=== PATIENT | female | born 1950 | race Hispanic/Latino ===

== ENCOUNTER → 2019-05-01 | Outpatient (CLI) | payer MEDICARE, OTHER ==
--- NOTE | 2019-05-01 15:24 | Diagnostic Imaging Report ---
History: Mild cognitive impairment Comparison studies: None. Technique: High resolution 3-D T1 with coronal, axial and sagittal reformats, axial DWI, axial T2*GRE, axial T2 and axial T2 FLAIR. Intravenous contrast: None. Findings: Structural lesions: No intra-or extra-axial masses. No hematomas. Atrophy: General: Symmetric and age appropriate. Focal: No disproportionate lobar, hippocampal, mesencephalic, pontine, or cerebellar atrophy. Sepulveda matter: Cortex: No signal abnormalities. No encephalomalacia. Basal ganglia: No atrophy or signal abnormalities. Thalami: No signal abnormalities. White matter signal intensity: No signal abnormalities. No capping or banding along the margins of the lateral ventricles. Micro hemorrhages: None. Extra-axial spaces: No mass or fluid collection. Ventricles: The left lateral ventricle is slightly larger than the right which may be an anatomical variant for this patient. No hydrocephalus. Other: Skull: No bone marrow abnormalities. Vessels: Expected flow voids present in the major arteries and dural sinuses.. Sella: Normal in size. No intra-or suprasellar abnormalities. Cranio-cervical junction: No abnormalities. Patent foramen magnum. No Chiari one malformation. Paranasal sinuses and mastoids: No T2 hyperintense mucosal thickening. Incidental findings: Lens replacement for previous cataract surgery. IMPRESSION: No intracranial abnormalities. Signed by: Dr. Augusto Choi M.D. on 05/01/2019 3:21 PM
--- NOTE | 2019-05-01 15:52 | Diagnostic Imaging Report ---
EXAM: Renal Ultrasound INDICATION: ^MALIGNANT NEOPLASM OF KIDNEY COMPARISON: None TECHNIQUE: Transverse and longitudinal images of the kidneys and bladder were obtained. FINDINGS: Right Kidney: Status post right partial nephrectomy. Length: 9.1 cm Appearance: Normal echogenicity. Collecting system: No hydronephrosis Stones: None Cyst/Mass: Mid pole anechoic simple cysts measuring 1.4 x 1.1 x 1.2 cm and 1.2 x 1.0 x 1.0 cm. Left Kidney: Length: 10.1 cm Appearance: Normal echogenicity. Collecting system: No hydronephrosis Stones: None Cyst/Mass: Upper pole 3.4 x 2.1 x 1.8 cm and 1.8 x 2.0 x 1.6 cm anechoic simple cysts. Midpole 1.9 x 2.0 x 2.4 cm anechoic simple cyst. Bladder: No mass or calculi. Bilateral ureteral jets seen. Prevoid volume estimate of 136cc IMPRESSION: Status post right partial nephrectomy. No solid mass lesions. No renal calculi or hydronephrosis. Bilateral simple cysts as above. Signed by: Jose Alejandro Jeronimo MD on 05/01/2019 3:48 PM
== END ==
LOC: MRI 13:34
PROVIDERS: ATTEND Family Medicine
DX: G31.84 Mild cognitive impairment of uncertain or unknown etiology (principal)
CPT/HCPCS: 70551; 76770

== ENCOUNTER → 2020-02-24 | Outpatient (CLI) | payer OTHER ==
[~2020-02-24] MED LIST: CIPRO500 MG PO; COLESTIPOL HCL1 GM PO; IOPAMIDOL 370 MG/ML 200 ML INFUS..BTL INJ ONE; LINZESS290 MCG PO; LIPITOR10 MG PO; LOMOTIL TABLET1 EACH PO; LOSARTAN-HCTZ1 EACH PO; OMEPRAZOLE40 MG PO; SODIUM CHLORIDE 0.9% 500ML 500 ML ONE; SODIUM CHLORIDE 0.9% 50ML 50 ML ONE
[2020-02-24 12:23] LABS: CREATININE, SERUM 1.05 mg/dL (0.57-1.11)
--- NOTE | 2020-02-24 15:27 | Diagnostic Imaging Report ---
CT of the abdomen and pelvis, with contrast. History: Malignant neoplasm of right kidney. Comparison: Ultrasound from 05/01/2019, CT abdomen/pelvis without with contrast from 04/17/2017. Technique: Multidetector CT scanning of the abdomen and pelvis was performed from the level of the lung bases to the inferior pubic rami after intravenous administration of contrast. Coronal and sagittal multiplanar reformations were obtained. RADIATION DOSE: Total DLP: 289.34 mGy*cm Dose modulation, iterative reconstruction, and/or weight based adjustment of the mA/kV was utilized to reduce the radiation dose to as low as reasonably achievable. FINDINGS: The visualized lungs are grossly clear. The imaged portion of the heart demonstrates no significant abnormalities. The liver is normal in size without evidence for focal abnormality. The gallbladder is unremarkable. There is no biliary ductal dilatation. There is a moderate size hiatal hernia present, similar to the prior examination. The stomach is otherwise unremarkable. The spleen pancreas, and bilateral adrenal glands are unremarkable. There are postsurgical interval changes from partial right nephrectomy with removal of the previously visualized exophytic solid mass arising from the inferior right kidney. There is a small amount of soft tissue stranding noted within the adjacent perirenal fat which likely reflects postsurgical change/fat necrosis. No discrete solid mass is identified. This examination can serve as a baseline for future comparisons. The kidneys otherwise enhance symmetrically. There are bilateral renal cystic lesions, some which are compatible simple cysts and some which are too small to definitively characterize. The largest cyst on the left measures up to 2.6 cm. The largest cyst on the right measures up to 1.7 cm. No no definite solid masses are identified on this single phase examination. There is no evidence for hydronephrosis. No ureteral stone/dilatation is appreciated. The partially distended urinary bladder demonstrates no significant abnormalities. The uterus is surgically absent. No abnormal adnexal masses are identified. The abdominal aorta is normal in course and caliber with atherosclerotic calcifications within its course and branch vessels. The IVC is otherwise unremarkable. Please note evaluation the bowel is limited without the use of enteric contrast material. The visualized loops of small and large bowel demonstrate no evidence of obstruction or inflammation. Diverticula are noted within the sigmoid and descending colon without evidence for acute diverticulitis. There is no ascites or intraperitoneal free air. No abnormally enlarged lymph nodes are identified within the abdomen or pelvis. There are multilevel degenerative changes of the lumbar spine including mild retrolisthesis of L2 on L3 and L3 on L4. There is no evidence of acute fracture or destructive process. The extraperitoneal soft tissues are unremarkable. IMPRESSION: 1. Post surgical changes from partial right nephrectomy. Small amount of soft tissue stranding noted in the adjacent perirenal fat which likely reflects postsurgical change. No discrete solid mass is identified to suggest residual/recurrent disease. 2. Bilateral renal cysts. 3. Moderate size hiatal hernia. 4. Diverticulosis coli without evidence for acute diverticulitis. Signed by: Dr. Umseh Sprague MD on 02/24/2020 3:23 PM
== END ==
LOC: CT 10:56
PROVIDERS: ATTEND Family Medicine
DX: C64.1 Malignant neoplasm of right kidney, except renal pelvis (principal)
CPT/HCPCS: 36415; 74177; 82565; 84520; 96360; J7040; Q9967

== ENCOUNTER → 2020-02-28 | Day surgery (SDC) | payer MEDICARE, OTHER ==
[2020-02-25 11:38] LABS: BASOPHILS % 0.7 % (0.0-1.0); EOSINOPHILS # (AUTO) 0.2 (0.0-0.4); EOSINOPHILS % 3.9 % (0.0-6.0); HEMOGLOBIN 9.1 g/dL (12.0-16.0); LYMPHOCYTES # (AUTO) 1.2 (1.0-3.2); LYMPHOCYTES % 22.3 % (18.0-39.1); MEAN CORPUSCULAR HEMOGLOBIN 23.5 pg (28-32); MEAN CORPUSCULAR HGB CONC 30.3 g/dL (31-35); MEAN CORPUSCULAR VOLUME 77.5 fL (81-99); MONOCYTES # (AUTO) 0.4 (0.2-0.8); MONOCYTES % 7.7 % (4.4-11.3); NEUTROPHILS # (AUTO) 3.5 (2.1-6.9); NEUTROPHILS % 65.2 % (38.7-80.0); PLATELET COUNT 486 x10e3/uL (140-360); RED BLOOD COUNT 3.87 x10e6/uL (3.6-5.1); RED CELL DISTRIBUTION WIDTH 15.2 % (11.7-14.4)
[~2020-02-28] MED LIST changes: -IOPAMIDOL 370 MG/ML 200 ML INFUS..BTL INJ ONE; +PROPOFOL IV EMULSION 10 MG/ML 20 ML VIAL ONE; -SODIUM CHLORIDE 0.9% 500ML 500 ML ONE; -SODIUM CHLORIDE 0.9% 50ML 50 ML ONE
[2020-02-28 07:50] VITALS: BP 123/87
== END | disposition home or self-care (01) ==
LOC: OR 05:40
PROVIDERS: ATTEND Internal Medicine Gastroenterology
DX: K59.00 Constipation, unspecified (principal); D12.3 Benign neoplasm of transverse colon; K57.30 Diverticulosis of large intestine without perforation or abscess without bleeding; K64.8 Other hemorrhoids; I10 Essential (primary) hypertension; F17.210 Nicotine dependence, cigarettes, uncomplicated; Z01.810 Encounter for preprocedural cardiovascular examination; Z01.812 Encounter for preprocedural laboratory examination; Z11.59 Encounter for screening for other viral diseases
CPT/HCPCS: 36415; 45385; 85025; 87635; 88305; 93005; J2704

== ENCOUNTER → 2020-09-07 | Outpatient (CLI) | payer MEDICARE ==
[~2020-09-07] MED LIST changes: -PROPOFOL IV EMULSION 10 MG/ML 20 ML VIAL ONE
== END ==
LOC: MRI 06:58
PROVIDERS: ATTEND Physical Medicine & Rehabilitation Pain Medicine
DX: M54.16 Radiculopathy, lumbar region (principal); M54.12 Radiculopathy, cervical region
CPT/HCPCS: 72141; 72148

== ENCOUNTER → 2020-09-10 | Day surgery (SDC) | payer MEDICARE, OTHER ==
[2020-09-07 10:33] LABS: BASOPHILS # (AUTO) 0.1 (0.0-0.1); BASOPHILS % 0.7 % (0.0-1.0); EOSINOPHILS # (AUTO) 0.2 (0.0-0.4); EOSINOPHILS % 2.7 % (0.0-6.0); HEMATOCRIT 33.6 % (34.2-44.1); HEMOGLOBIN 10.7 g/dL (12.0-16.0); LYMPHOCYTES # (AUTO) 2.6 (1.0-3.2); LYMPHOCYTES % 32.3 % (18.0-39.1); MEAN CORPUSCULAR HEMOGLOBIN 26.2 pg (28-32); MEAN CORPUSCULAR HGB CONC 31.8 g/dL (31-35); MEAN CORPUSCULAR VOLUME 82.4 fL (81-99); MONOCYTES # (AUTO) 0.7 (0.2-0.8); MONOCYTES % 8.2 % (4.4-11.3); NEUTROPHILS # (AUTO) 4.5 (2.1-6.9); NEUTROPHILS % 55.9 % (38.7-80.0); PLATELET COUNT 406 x10e3/uL (140-360); RED BLOOD COUNT 4.08 x10e6/uL (3.6-5.1); RED CELL DISTRIBUTION WIDTH 14.8 % (11.7-14.4)
[~2020-09-10] MED LIST changes: +BACTRIM DS TAB1 EACH PO; +CALCIUM500 MG PO; +CYMBALTA20 MG PO; +DEXAMETHASONE SOD PHOS 10 MG/1 ML VIAL ONE; +FENTANYL CITRATE/PF 100MCG/2 ML INJ ONE; +FISH OIL 1,0001 EAC2 PEG; +FISH OIL 1,0001 EAC2 PO; +FLUTICASONE; +IOPAMIDOL 200 MG/ML 20 ML VIAL IT ONE; +LIDOCAINE HCL 1% 30ML-PF VIAL ONE; +LIDOCAINE HCL 2% LOCAL INJ 5 ML SDV VIAL INJ ONE; +MIDAZOLAM HCL 2 MG/2 ML VIAL ONE; +MONTELUKAST SOD10 MG PO; +PREDNISONE10 MG PO; +PROPOFOL IV EMULSION 10 MG/ML 20 ML VIAL ONE; +[UNRECOGNIZED DRUG - OTHER] PO
[2020-09-10 08:00] VITALS: BP 122/70
== END | disposition home or self-care (01) ==
LOC: OR 05:27
PROVIDERS: ATTEND Physical Medicine & Rehabilitation Pain Medicine
DX: M54.16 Radiculopathy, lumbar region (principal); M46.1 Sacroiliitis, not elsewhere classified; M54.12 Radiculopathy, cervical region; K21.9 Gastro-esophageal reflux disease without esophagitis; I10 Essential (primary) hypertension; F41.9 Anxiety disorder, unspecified; F32.9 Major depressive disorder, single episode, unspecified; Z01.810 Encounter for preprocedural cardiovascular examination; Z01.812 Encounter for preprocedural laboratory examination; Z20.828 Contact with and (suspected) exposure to other viral communicable diseases; Z85.528 Personal history of other malignant neoplasm of kidney
CPT/HCPCS: 36415; 64483; 64484; 85025; 93005; J1100; J2001 ×2; J2250; J2704; J3010; Q9967; U0002; 77003

== ENCOUNTER 2020-12-04 09:07 | Emergency (ER) | payer MEDICARE ==
[~2020-12-04] VITALS: Ht 162.6 cm; Wt 54.4 kg
[~2020-12-04 09:07] MED LIST changes: -DEXAMETHASONE SOD PHOS 10 MG/1 ML VIAL ONE; -FENTANYL CITRATE/PF 100MCG/2 ML INJ ONE; -IOPAMIDOL 200 MG/ML 20 ML VIAL IT ONE; -LIDOCAINE HCL 1% 30ML-PF VIAL ONE; -LIDOCAINE HCL 2% LOCAL INJ 5 ML SDV VIAL INJ ONE; -MIDAZOLAM HCL 2 MG/2 ML VIAL ONE; -PROPOFOL IV EMULSION 10 MG/ML 20 ML VIAL ONE
[2020-12-04 09:33] LABS: BASOPHILS % 0.6 % (0.0-1.0); EOSINOPHILS # (AUTO) 0.2 (0.0-0.4); EOSINOPHILS % 3.2 % (0.0-6.0); HEMATOCRIT 25.2 % (34.2-44.1); HEMOGLOBIN 7.6 g/dL (12.0-16.0); LYMPHOCYTES # (AUTO) 1.9 (1.0-3.2); LYMPHOCYTES % 30.4 % (18.0-39.1); MEAN CORPUSCULAR HEMOGLOBIN 23.8 pg (28-32); MEAN CORPUSCULAR HGB CONC 30.2 g/dL (31-35); MEAN CORPUSCULAR VOLUME 78.8 fL (81-99); MONOCYTES # (AUTO) 0.6 (0.2-0.8); MONOCYTES % 9.3 % (4.4-11.3); NEUTROPHILS # (AUTO) 3.5 (2.1-6.9); NEUTROPHILS % 56.3 % (38.7-80.0); PLATELET COUNT 420 x10e3/uL (140-360); RED CELL DISTRIBUTION WIDTH 15.2 % (11.7-14.4)
[2020-12-04] MEDS ORDERED: COLACE100 MG PO (09:52)
[2020-12-04] MEDS ORDERED: FERROUS SULFAT325 MG PO (09:52)
[2020-12-04 10:00] VITALS: BP 120/63
== END 2020-12-04 10:03 | disposition home or self-care (01) ==
LOC: ER 09:19
DX: D64.9 Anemia, unspecified (principal); I10 Essential (primary) hypertension; E78.5 Hyperlipidemia, unspecified; Z85.528 Personal history of other malignant neoplasm of kidney
CPT/HCPCS: 36415; 85025; 99283

== ENCOUNTER → 2022-12-16 | Outpatient (CLI) | payer MEDICARE ==
[~2022-12-16] MED LIST changes: +COLACE100 MG PO; +FERROUS SULFAT325 MG PO
== END ==
LOC: DX 10:38
PROVIDERS: ATTEND Family Medicine
DX: R13.14 Dysphagia, pharyngoesophageal phase (principal); F10.14 Alcohol abuse with alcohol-induced mood disorder
CPT/HCPCS: 74230